=== PATIENT | male | born 1985 | race Caucasian/White ===

== ENCOUNTER 2018-10-31 02:53 | Emergency (ER) | payer SELFPAY ==
[~2018-10-31] VITALS: Ht 170.2 cm; Wt 77.1 kg
[2018-10-31] MEDS ORDERED: KETOROLAC TROMETHAMINE 30 MG INJ IM ONE (03:15)
[2018-10-31] MEDS ORDERED: KETOROLAC TROMETHAMINE 30 MG INJ ONE (03:16)
--- NOTE | 2018-10-31 03:21 | NUR ---
Pt. ambulated into ED w/ c/o R lower toothache x 1.5 days, A/Ox4, denies CP/RUFFIN/F/C/N/V/D
--- NOTE | 2018-10-31 03:25 | NUR ---
Patient discharged to home in stable conditon. Written and verbal after care instructions given. Patient verbalizes understanding of instructions. Pt. d/c w/ prescription per MD, d/c papers signed, all belongings w/ pt., ID band removed, ambulated out of unit w/ steady gait, NAD,
== END 2018-10-31 03:27 | disposition home or self-care (01) ==
LOC: ER 02:53
DX: K02.9 Dental caries, unspecified (principal); F12.10 Cannabis abuse, uncomplicated
CPT/HCPCS: 96372; 99283; J1885; A4663